=== PATIENT | male | born 1990 | race Asian ===

== ENCOUNTER 2022-10-09 04:39 | Emergency (ER) | payer BC ==
[~2022-10-09] VITALS: Ht 167.6 cm; Wt 72.6 kg
[2022-10-09 04:52] VITALS: BP_SYST 140
[2022-10-09] MEDS ORDERED: DIPH25CA83 PO (05:25)
[2022-10-09] MEDS ORDERED: TOBR5DRO7 LEFT EYE (05:25)
== END 2022-10-09 05:34 | disposition home or self-care (01) ==
LOC: SED 04:39
DX: H10.32 Unspecified acute conjunctivitis, left eye (principal); J06.9 Acute upper respiratory infection, unspecified; Z79.899 Other long term (current) drug therapy
CPT/HCPCS: 99283